=== PATIENT | female | born 1965 | race Two or more races ===

== ENCOUNTER 2023-12-23 12:32 | Emergency (ER) | payer MEDICAID ==
[~2023-12-23] VITALS: Ht 165.1 cm; Wt 61.2 kg
[2023-12-23 13:08] VITALS: BP 129/76; TEMP 98.9; O2SAT 98
[2023-12-23] MEDS ORDERED: AZIT250T13 PO (14:19)
[2023-12-23] MEDS ORDERED: AZITHROMYCIN 250 MG TABLET ONE (14:26)
[2023-12-23] MEDS: AZITHROMYCIN 250 MG TABLET PO ONE (14:30)
== END 2023-12-23 14:41 | disposition home or self-care (01) ==
LOC: ER 12:46
DX: R05.9 Cough, unspecified (principal)
CPT/HCPCS: 71045-TC